=== PATIENT | male | born 1975 | race Two or more races ===

== ENCOUNTER 2024-06-19 20:00 | Emergency (ER) | payer SELFPAY ==
[2024-06-19 20:02] VITALS: BP 145/92; PULSE 114; RESP 17; TEMP 36.3; O2SAT 97; BMI 25.6
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
[2024-06-19 23:05] LABS: Alcohol, Blood Medical 216.8 mg/dL (0-10.0)
--- NOTE | 2024-06-20 00:03 | PC.NURSE ---
2324 BERENICE CONTACTED [facility] SENT. [address] GRAF SPEAKING WITH SHELLY AT THIS TIME.
[2024-06-20 00:10] VITALS: BP 120/74; PULSE 117; RESP 17; TEMP 37.5; O2SAT 96
--- NOTE | 2024-06-20 00:42 | PC.NURSE ---
0007 PT ACCEPTED TO [facility] BY DR COHEN. REPORT TO [phone].
--- NOTE | 2024-06-20 01:15 | PC.NURSE ---
REPORT GIVEN TO NURSE AT [facility].
== END 2024-06-20 01:20 | disposition short-term general hospital (02) ==
PROVIDERS: Emergency Provider Emergency Medicine
DX: Z02.89 Encounter for other administrative examinations (principal); S22.22XA Fracture of body of sternum, initial encounter for closed fracture; S22.32XA Fracture of one rib, left side, initial encounter for closed fracture; F10.929 Alcohol use, unspecified with intoxication, unspecified; S09.90XA Unspecified injury of head, initial encounter; S19.9XXA Unspecified injury of neck, initial encounter; M79.5 Residual foreign body in soft tissue; V89.2XXA Person injured in unspecified motor-vehicle accident, traffic, initial encounter; Y90.7 Blood alcohol level of 200-239 mg/100 ml
CPT/HCPCS: 36415; 70450; 70486; 71260; 72125; 74177; 80307; 80320; 99285; A4649; Q9967; G0480